=== PATIENT | female | born 1970 | race Caucasian/White ===

== ENCOUNTER 2017-10-10 09:38 | Emergency (ER) | payer BC ==
[2017-10-10 11:45] VITALS: BP 144/69
--- NOTE | 2017-10-10 12:01 | UC ---
Throat Pain/Nasal Graham HPI - HPI Summary HPI Summary: Pt with progressive x 1 week sinus pressure and congestion. + face discomfort and fullness. + ear popping. + green secretion + PND No cough. No wheeze. chills, no documented fever. No relief with OTC + h.o similiar - last abx 1 year. Pt's medications reviewed this visit - History of Current Complaint Chief Complaint: UCGeneralIllness Stated Complaint: SINUS Time Seen by Provider: 10/10/17 11:57 Hx Obtained From: Patient Hx Last Menstrual Period: uterine ablation ?: No Onset/Duration: Gradual Onset, Lasting Days Severity: Moderate Pain Intensity: 6 Pain Scale Used: 0-10 Numeric Associated Signs & Symptoms: Positive: Sinus Discomfort, Nasal Discharge - Allergies/Home Medications Allergies/Adverse Reactions: Allergies Allergy/AdvReac Type Severity Reaction Status Date / Time Clindamycin Allergy Itching Verified 10/10/17 11:45 PMH/Surg Hx/FS Hx/Imm Hx Previously Healthy: Yes - Surgical History Surgical History: Yes Surgery Procedure, Year, and Place: Novasure Ablation. sinus sugery. 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 tubal. beena - Family History Known Family History: Positive: Hypertension - Social History Occupation: Employed Full-time Lives: With Family Alcohol Use: None Substance Use Type: None Smoking Status (MU): Never Smoked Tobacco Have You Smoked in the Last Year: No - Immunization History Most Recent Influenza Vaccination: Not the 2014/2015 Season Review of Systems Constitutional: Negative Skin: Negative ENT: Nasal Discharge, Sinus Congestion, Sinus Pain/Tenderness Respiratory: Negative All Other Systems Reviewed And Are Negative: Yes Physical Exam Triage Information Reviewed: Yes Appearance: Well-Appearing, No Pain Distress, Well-Nourished Vital Signs: Initial Vital Signs Temp 99.9 F 10/10/17 11:43 Pulse 89 10/10/17 11:43 Resp 14 10/10/17 11:43 BP 144/69 10/10/17 11:43 Pulse Ox 98 10/10/17 11:43 Vital Signs Reviewed: Yes Eyes: Positive: Conjunctiva Clear ENT Exam: Normal ENT: Positive: Hearing grossly normal, Pharynx normal, Pharyngeal erythema, Nasal congestion, Sinus tenderness - max R>L + mild frontal, Other - + fluid b/ l TM - no erythema, no retraction boggy turbinates + PND no erythema, no exudate Dental Exam: Normal Neck exam: Normal Neck: Positive: Supple, Nontender Respiratory Exam: Normal Respiratory: Positive: Chest non-tender, Lungs clear, Normal breath sounds, No respiratory distress, No accessory muscle use Cardiovascular Exam: Normal Cardiovascular: Positive: RRR, No Murmur, Pulses Normal Abdominal Exam: Normal Abdomen Description: Positive: No Organomegaly, Soft Bowel Sounds: Positive: Present Musculoskeletal Exam: Normal Neurological Exam: Normal Psychological Exam: Normal Skin Exam: Normal Throat Pain/Nasal Course/Dx - Course Course Of Treatment: Pt with progressive sinus pressure and discomfort. Pt with apparent sinusitis on exam. abx. hydrate. medrol dose pack. decongestant. secretion precaution - Differential Dx/Diagnosis Provider Diagnoses: sinusisits Discharge - Discharge Plan Condition: Stable Disposition: HOME Prescriptions: Amoxicillin/Clavulanate TAB* [Augmentin TAB 875*] 875 mg PO BID #20 tab Methylprednisolone [Medrol Dosepak 4 MG*] 4 mg PO .SEE WAYNE INSTRUCTION #1 tab Patient Education Materials: Rhinosinusitis (ED) Referrals: Mik Briones MD [Primary Care Provider] - Additional Instructions: - Stay well hydrated. Drink plenty of non-alcoholic, non-caffinated beverages - Alternate ibuprofen (Advil, motrin) 600mg and tylenol every 3 hours for pain or fever - Take anitbiotics and prednisone as prescribed - These infections are spread by oral secretions. Do not share eating or drinking utensils. Frequent hand washing is important. Clean items that may get your secretions on them such as cell phones, ipads, computer mouse, television remotes. AFter you have been on antibiotics for 2 days, change your pillowcase and your toothbrush - contact your doctor or return with questions or concerns
== END 2017-10-10 12:14 | disposition home or self-care (01) ==
LOC: UCCORT 09:38
DX: J32.9 Chronic sinusitis, unspecified (principal)
CPT/HCPCS: 99212; G0463

== ENCOUNTER 2018-05-15 07:52 | Emergency (ER) | payer BC ==
--- NOTE | 2018-05-15 08:04 | UC ---
Throat Pain/Nasal Graham HPI - HPI Summary HPI Summary: 48 yo lady c/o sore throat and x Malaise for 5 days and diarrhea for 3. Throat pain started 3 days ago; tongue swelling yesterday with white patches in mouth. Unexplained falls 3 and 2 weeks ago, then 2016 - History of Current Complaint Stated Complaint: SORE THROAT Hx Obtained From: Patient Hx Last Menstrual Period: uterine ablation - Allergies/Home Medications Allergies/Adverse Reactions: Allergies Allergy/AdvReac Type Severity Reaction Status Date / Time clindamycin Allergy Itching Verified 05/15/18 08:29 Home Medications: Home Medications Naproxen Sodium [Aleve] 440 mg PO ONCE PRN 05/15/18 [History Confirmed 05/15/18] diphenhydrAMINE HCl [Benadryl Allergy] 25 mg PO ONCE 05/15/18 [History Confirmed 05/15/18] PMH/Surg Hx/FS Hx/Imm Hx Previously Healthy: Yes - Surgical History Surgical History: Yes Surgery Procedure, Year, and Place: Novasure Ablation. sinus sugery. 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 tubal. beena - Family History Known Family History: Positive: Hypertension - Social History Alcohol Use: None Substance Use Type: None Smoking Status (MU): Never Smoked Tobacco Have You Smoked in the Last Year: No - Immunization History Most Recent Influenza Vaccination: Not the 2014/2015 Season Review of Systems Constitutional: Fatigue Skin: Negative Eyes: Negative ENT: Sore Throat, Nasal Discharge Respiratory: Negative Cardiovascular: Negative Gastrointestinal: Negative Genitourinary: Negative Motor: Negative Neurovascular: Negative Musculoskeletal: Negative Neurological: Negative Psychological: Negative Is Patient Immunocompromised?: No All Other Systems Reviewed And Are Negative: Yes Physical Exam Triage Information Reviewed: Yes Appearance: Well-Appearing, Well-Nourished Vital Signs Reviewed: Yes Eye Exam: Normal - grossly normal ENT: Positive: Pharyngeal erythema, Other - + blisters and sores post pharynx, soft palate. Uvula midline. Blisters noted underside of tongue as well. Tongue not elevated to obstruction, but + subjective swelling. No stridor. No lip sores noted. Dental Exam: Normal - grossly acutely nonfocal Neck exam: Normal Neck: Positive: Supple, Nontender Respiratory Exam: Normal Respiratory: Positive: Chest non-tender, Lungs clear, Normal breath sounds, No respiratory distress, No accessory muscle use Cardiovascular Exam: Normal Cardiovascular: Positive: RRR, No Murmur, Pulses Normal, Brisk Capillary Refill Abdominal Exam: Normal Abdomen Description: Positive: Nontender Musculoskeletal Exam: Normal - moves x 4 exts gait steady Neurological Exam: Normal - grossly nonfocal Psychological Exam: Normal - conversing easily and appropriately Skin Exam: Normal - no visible or reported rash (incl hand / feet) Throat Pain/Nasal Course/Dx - Course Course Of Treatment: RST neg. Will check blood work. F/u PCP (recently started seeing Dr. Austin). C/o swelling tongue is really painful, and would like to start medication to decrease swelling. Airway is patent. However, will start prednisone short course. D/w pt that this is an immunosuppressive, and could prolong sx. Will concurrently rx amoxil (d/t immuno suppr in the setting of pharyngitis). Reviewed coa / tx plan. Questions as posed answered to the best of my ability. 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 2014 + IgG ab (EBV). 2017 Lyme serology neg - Differential Dx/Diagnosis Provider Diagnoses: Pharyngitis. mouth sores Discharge - Sign-Out/Discharge Documenting (check all that apply): Patient Departure - Discharge Plan Condition: Stable Disposition: HOME Prescriptions: Amoxicillin PO (*) [Amoxicillin 875 MG (*)] 875 mg PO BID #14 tab predniSONE TAB* [Deltasone 20 MG TAB*] 10 mg PO DAILY #11 tab Patient Education Materials: Pharyngitis (ED) Referrals: Akosua Austin MD [Primary Care Provider] - Additional Instructions: Follow up with your primary care physician, Dr. Austin, in the next week for recheck. Seek medical attention for worse or new problems in the meantime. Prednisone for swelling. Suspect virus, including Coxsackie A variant. - Billing Disposition and Condition Condition: STABLE Disposition: Home
[2018-05-15 08:18] VITALS: BP 135/73
[2018-05-15 13:33] LABS: ABS Basophils 0 10^3/ul (0-0.2); ABS Eosinophils 0.2 10^3/ul (0-0.6); ABS Lymphocytes 1.2 10^3/ul (1.0-4.8); ABS Monocytes 0.4 10^3/ul (0-0.8); ABS Neutrophils 3.1 10^3/ul (1.5-7.7); ABS Nucleated RBC 0 10^3/ul; Eosinophil % 4.4 % (0-6); Hematocrit 43 % (35-47); Hemoglobin 14.5 g/dl (12.0-16.0); Lymphocyte % 23.8 % (25-47); Mean Corpuscular HGB Conc 34 g/dl (31-36); Mean Corpuscular Hemoglobin 31 pg (27-31); Mean Corpuscular Volume 93 fL (80-97); Mean Platelet Volume 11.2 um3 (7.4-10.4); Nucleated Red Blood Cells % 0; Platelet Count 244 10^3/ul (150-450); Red Blood Count 4.61 10^6/ul (4.00-5.40); Red Cell Distribution Width 13 % (10.5-15)
[2018-05-15 13:42] LABS: EGFR Non-African American 94.3 (>60)
--- NOTE | 2018-05-16 07:21 | UC ---
- Progress Note Progress Note: CBC cmp CRP reviewed No concerning results сергейj 05/16/2018 Discharge - Sign-Out/Discharge Documenting (check all that apply): Post-Discharge Follow Up - Discharge Plan Condition: Stable Disposition: HOME Prescriptions: Amoxicillin PO (*) [Amoxicillin 875 MG (*)] 875 mg PO BID #14 tab predniSONE TAB* [Deltasone 20 MG TAB*] 10 mg PO DAILY #11 tab Patient Education Materials: Pharyngitis (ED) Referrals: Akosua Austin MD [Primary Care Provider] - Additional Instructions: Follow up with your primary care physician, Dr. Austin, in the next week for recheck. Seek medical attention for worse or new problems in the meantime. Prednisone for swelling. Suspect virus, including Coxsackie A variant. - Billing Disposition and Condition Condition: STABLE Disposition: Home
== END 2018-05-15 09:11 | disposition home or self-care (01) ==
LOC: UCCORT 07:52
DX: J02.9 Acute pharyngitis, unspecified (principal); K13.79 Other lesions of oral mucosa; Z88.1 Allergy status to other antibiotic agents
CPT/HCPCS: 36415; 80048; 83735; 85025; 86140; 87651; 99212; G0463